=== PATIENT | male | born 1990 | race Caucasian/White ===

== ENCOUNTER 2021-03-03 09:53 | Outpatient (CLI) | payer OTHER, SELFPAY ==
[2021-03-03 10:10] LABS: Hematocrit 46.4 % (40.0-54.0); Hemoglobin 15.1 g/dL (14.0-18.0); Mean Corpuscular HGB Conc 32.5 g/dL (32.0-36.0); Mean Corpuscular Hemoglobin 29.5 pg (27.0-31.0); Mean Corpuscular Volume 90.6 fL (78.0-102.0); Mean Platelet Volume 11.2 fl (8.7-11.0); Platelet Count Result 152 K/mm3 (150-420); Red Blood Count 5.12 M/mm3 (4.70-6.10); White Blood Count 5.4 K/mm3 (4.8-10.8)
[2021-03-03 11:17] LABS: Alanine Aminotransferase 23 U/L (16-63); Albumin Level 4.1 g/dL (3.4-5.0); Alkaline Phosphatase 73 U/L (46-116); Anion Gap 7 mmol/L (8-16); Aspartate Amino Transferase 13 U/L (15-37); Bilirubin,Total 0.4 mg/dL (0.00-1.00); Blood Urea Nitrogen 13 mg/dL (7-18); Calcium 9.4 mg/dL (8.5-10.1); Carbon Dioxide 31 mmol/L (21-32); Chloride 103 mmol/L (98-108); Estimated Glomerular Filt Rate > 60; Glucose 93 mg/dL (70-99); Osmolality Calculated 292 mOsm/kg (285-295); Potassium 4.6 mmol/L (3.5-5.1); Sodium 141 mmol/L (136-145); Total Protein 7.5 g/dL (6.4-8.2)
[2021-03-03 11:19] LABS: CRP < 0.2 mg/dL (0.0-0.9)
[2021-03-03 11:20] LABS: Thyroid Stimulating Hormone Reflex 1.22 u/IU/mL (0.36-3.74)
[2021-03-08 13:25] LABS: Gliadin AB, IgG 4 Units (<20); Reticulin IgA Negative (Negative); TTG IGA AB 1 U/mL (<4)
== END 2021-03-03 09:54 | disposition home or self-care (01) ==
LOC: CHSLAB 09:54
PROVIDERS: PCP Family Medicine; Visit Provider Family Medicine
DX: K52.9 Noninfective gastroenteritis and colitis, unspecified (principal); E11.9 Type 2 diabetes mellitus without complications
CPT/HCPCS: 36415; 80053; 83516; 84443; 85027; 86140; 86255

== ENCOUNTER 2021-03-04 14:56 | Outpatient (CLI) | payer OTHER, SELFPAY ==
[2021-03-04 15:14] LABS: Occult Blood Negative (Negative)
== END 2021-03-04 14:57 | disposition home or self-care (01) ==
LOC: CHSLAB 14:58
PROVIDERS: PCP Family Medicine; Visit Provider Family Medicine
DX: K52.9 Noninfective gastroenteritis and colitis, unspecified (principal)
CPT/HCPCS: 83630; 83993; 87045; 87177; 87209; 87324; 87427

== ENCOUNTER 2021-03-18 16:15 | Outpatient (CLI) | payer OTHER, SELFPAY ==
--- NOTE | ~2021-03-18 | XR_ITS ---
XR lumbar spine 2-3V DATE: 03/18/2021 16:35 INDICATION: Back pain TECHNIQUE: AP, lateral, coned lateral lumbosacral views COMPARISON: None FINDINGS: There is slight levoscoliosis No fracture or dislocation or bone destruction. The lumbar pe dicles are intact. Lumbar and lumbosacral interspaces are well preserved. The sacral iliac joints are normal. IMPRESSION: Slight levoscoliosis Reviewed, dictated and finalized at location A. IMPRESSION: Slight levoscoliosis
== END 2021-03-18 16:16 | disposition home or self-care (01) ==
LOC: CHSIMG 16:17
PROVIDERS: PCP Family Medicine; Visit Provider Family Medicine
DX: M54.9 Dorsalgia, unspecified (principal); G89.29 Other chronic pain
CPT/HCPCS: 72100

== ENCOUNTER 2021-04-01 17:06 | Outpatient (RCR) | payer OTHER, SELFPAY ==
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
--- NOTE | 2021-05-26 13:07 | PCPTNOTE ---
05/26/21 - patient has not been to skilled PT in nearly a month. as of this date, he will be dc'd from skilled PT services and all progress towards goals will be taken from his most recent evaluation/note. IN[employer]
== END 2021-04-29 13:39 | disposition home or self-care (01) ==
LOC: CHSPT 17:06
PROVIDERS: PCP Family Medicine; Visit Provider Family Medicine
DX: M54.9 Dorsalgia, unspecified (principal); G89.29 Other chronic pain
CPT/HCPCS: 97014; 97110; 97161; G0283

== ENCOUNTER 2021-04-14 02:15 | Emergency (ER) | payer OTHER, SELFPAY ==
[2021-04-14 02:25] VITALS: BP 148/99; PULSE 93; RESP 20; TEMP 35.8; O2SAT 96
--- NOTE | 2021-04-14 02:51 | ED.DENTAL ---
HPI - Dental/Oral General Chief complaint: Dental/Oral Stated complaint: Tooth ache Time Seen by Provider: 04/14/21 02:17 Source: patient and RN notes reviewed Mode of arrival: ambulatory Limitations: no limitations History of Present Illness Complaint: tooth pain Location: Tooth # (16) Onset (ago): hour(s) (2) Duration: constant Severity: moderate Severity scale (1-10): 8 Relieving factors: nothing Exacerbating factors: chewing Context: history of dental caries and poor dental care Related Data Home Medications Medication Instructions Recorded Confirmed multivitamin 1 tablet PO DAILY 03/03/21 04/14/21 Allergies Allergy/AdvReac Type Severity Reaction Status Date / Time methylphenidate Allergy Unknown Unknown Verified 03/18/21 07:54 [From Ritalin] Review of Systems Review of Systems: All systems reviewed & are unremarkable except as noted in HPI and below PMFSH Past Medical History Medical History JUAN DIEGO (generalized anxiety disorder) Surgical History Surgical History No history of previous surgery Social History Social History Smoking status: Current every day smoker Tobacco type: e-cigarettes/vaping Additional living arrangements comments: . 1 daughter. Another daughter on the way. Additional occupation/education comments: [employer] in [place] and [employer] in [place]. Exam Const: General: no acute distress and alert Nutritional Appearance: well nourished Orientation/consciousness: patient oriented x3 Limitations: no limitations HENMT: Head: normal to inspection Ears: external ears normal and TM's normal bilaterally General nose exam: Normal external nose present and Normal nares present Mouth: Yes lip normal and Yes moist mucous membranes Teeth and gingiva: dentition normal Eyes: Conjunctivae: conjunctivae normal Pupils: Equal, round and reactive pupils present EOM: EOMs intact bilaterally Neck: Neck: normal visual inspection and no lymphadenopathy Chest: Chest palpation & inspection: normal inspection of the chest Resp: Effort & Inspection: normal respiratory effort Auscultation: clear to auscultation bilaterally Cardio: Rate: regular rate Rhythm: regular rhythm GI: Auscultation: normal bowel sounds : General: Yes bladder normal to palpation and Yes no CVA tenderness Testes: Testes normal Back/Spine/Pelvis: Back: no CVA tenderness Skin: General skin exam: normal color Rashes: no rashes Neuro: General: patient oriented x3, moves all extremities, no meningeal signs, no focal motor deficits and CN's II-XI intact bilaterally Extrem: General: normal to inspection and no pedal edema Psych: Appearance: well kempt Mental Status: mental status grossly normal Affect: normal affect Thought content: Yes Normal thought content present Course Course Emergency Course: pt had less pain in the ED. Reevaluation(s) Reevaluation #1: Pt was stable in the ED. Date: 04/14/21 Time: 02:48 Vital Signs Vital signs: Vital Signs Temperature 35.8 C L 04/14/21 02:25 Pulse Rate 93 04/14/21 02:25 Respiratory Rate 20 04/14/21 02:25 Blood Pressure 148/99 H 04/14/21 02:25 Pulse Oximetry 96 04/14/21 02:25 Temperature 35.8 C L 04/14/21 02:25 Pulse Rate 93 04/14/21 02:25 Respiratory Rate 20 04/14/21 02:25 Blood Pressure 148/99 H 04/14/21 02:25 Pulse Oximetry 96 04/14/21 02:25 MDM - Dental/Oral Differential Diagnosis Differential diagnosis: Likely dental caries and toothache Medical Records Attestation: I reviewed the patient's medical records. Critical Care Time Critical Care Time Critical Care Time: No Total Critical Care Time: 0 Discharge Plan Discharge Clinical Impression: Toothache, Dental caries Patient Disposition: Home, Self-Care Con
[2021-04-14] MEDS: KETOROLAC (*BKC) 60 MG/2 ML VIAL IM (02:53)
[2021-04-14 03:04] VITALS: BP 128/99; PULSE 74; RESP 20; O2SAT 97
== END 2021-04-14 03:07 | disposition home or self-care (01) ==
PROVIDERS: Emergency Provider Emergency Medicine; PCP Family Medicine
DX: K08.89 Other specified disorders of teeth and supporting structures (principal); K02.9 Dental caries, unspecified
CPT/HCPCS: 96372; 99283; J1885

== ENCOUNTER 2021-04-30 09:42 | Outpatient (CLI) | payer OTHER, SELFPAY ==
--- NOTE | ~2021-04-30 | XR_ITS ---
EXAMINATION: XR knee LT min 4V DATE: 04/30/2021 10:17 INDICATION: Left knee injury and pain. TECHNIQUE: 4 views of left knee including weight-bearing views were obtained. COMPARISON: None. FINDINGS: Bone alignment is normal. No fracture. Joint spaces are well maintained. There is no knee j oint effusion. IMPRESSION: 1. Normal left knee. Reviewed, dictated and finalized at location A. IMPRESSION: 1. Normal left knee.
== END 2021-04-30 09:43 | disposition home or self-care (01) ==
LOC: CHSIMG 09:46
PROVIDERS: PCP Family Medicine; Visit Provider Family Medicine
DX: S86.912A Strain of unspecified muscle(s) and tendon(s) at lower leg level, left leg, initial encounter (principal)
CPT/HCPCS: 73564

== ENCOUNTER 2022-06-22 10:32 | Outpatient (CLI) | payer OTHER, SELFPAY ==
--- NOTE | ~2022-06-22 | XR_ITS ---
EXAMINATION: XR ribs RT 2V w CXR 2V DATE: 06/22/2022 10:59 INDICATION: Right rib pain. Pleurodynia. Cough. TECHNIQUE: Frontal and lateral views of the chest and 2 views on 3 radiographs of the right ribs were obtained. COMPARISON: Chest radiographs 03/28/2010 FINDINGS: CHEST TWO VIEWS: There is no pneumonia, pleural effusion, or pneumothorax. The heart size is normal. RIGHT RIBS: There is no rib fracture. IMPRESSION: 1. No rib fracture. Reviewed, dictated and finalized at location A. [employer] IMPRESSION: 1. No rib fracture.
[2022-06-22 10:46] LABS: Hematocrit 45.7 % (40.0-54.0); Mean Corpuscular HGB Conc 32.8 g/dL (32.0-36.0); Mean Corpuscular Hemoglobin 29.1 pg (27.0-31.0); Mean Corpuscular Volume 88.6 fL (78.0-102.0); Mean Platelet Volume 10.7 fl (8.7-11.0); Platelet Count Result 164 K/mm3 (150-420); Red Blood Count 5.16 M/mm3 (4.70-6.10); Red Cell Distribution Width 12.3 % (11.6-14.4); White Blood Count 6.9 K/mm3 (4.8-10.8)
[2022-06-22 11:00] LABS: Prothrombin Time 10.7 Seconds (9.50-12.10)
[2022-06-22 11:31] LABS: Alanine Aminotransferase 22 U/L (16-63); Albumin Level 4.2 g/dL (3.4-5.0); Alkaline Phosphatase 93 U/L (46-116); Anion Gap 8 mmol/L (8-16); Aspartate Amino Transferase 16 U/L (15-37); Bilirubin,Total 0.3 mg/dL (0.00-1.00); Blood Urea Nitrogen 14 mg/dL (7-18); Calcium 9.1 mg/dL (8.5-10.1); Carbon Dioxide 30 mmol/L (21-32); Chloride 101 mmol/L (98-108); Estimated Glomerular Filt Rate > 60; Glucose 96 mg/dL (70-99); Lipase 40 U/L (16-77); Osmolality Calculated 288 mOsm/kg (285-295); Potassium 4.2 mmol/L (3.5-5.1); Sodium 139 mmol/L (136-145)
== END 2022-06-22 10:33 | disposition home or self-care (01) ==
LOC: CHSLAB 10:34
PROVIDERS: PCP Family Medicine; Visit Provider Family Medicine
DX: R10.9 Unspecified abdominal pain (principal); R07.81 Pleurodynia
CPT/HCPCS: 36415; 71046; 71100; 80053; 83690; 85027; 85610; 86140

== ENCOUNTER 2022-06-30 09:55 | Outpatient (CLI) | payer OTHER, SELFPAY ==
--- NOTE | ~2022-06-30 | US_ITS ---
Abdominal Sonogram: Real-time sonographic imaging of the abdomen was performed. Clinical History: Abdominal pain Findings: The liver appears normal with no evidence of mass lesion or bile duct dilatation. Main por rhianna vein demonstrates normal direction of flow. The spleen is normal in size without evidence of foca l lesion. The gallbladder is well distended, and appears normal with no evidence of gallstone or wal l thickening. The common bile duct measures 3 mm. The visualized pancreas, aorta, and IVC are unrema rkable. The right kidney measures 11.5 cm in length and the left kidney measures 11.3 cm. There is no hydronephrosis or renal calculus. Impression: Unremarkable abdominal ultrasound. Reviewed, dictated and finalized at location . [employer] Impression: Unremarkable abdominal ultrasound.
== END 2022-06-30 09:56 | disposition home or self-care (01) ==
LOC: CHSIMG 09:57
PROVIDERS: PCP Family Medicine; Visit Provider Family Medicine
DX: R10.9 Unspecified abdominal pain (principal)
CPT/HCPCS: 76700

== ENCOUNTER 2023-08-25 01:04 | Day surgery (SDC) | payer OTHER, SELFPAY ==
[2023-08-08 14:22] VITALS: BMI 29.2
--- NOTE | 2023-08-23 09:07 | SUR.PREOP ---
Patient called regarding upcoming procedure. Reviewed preop instructions, appointment times, and procedure prep.
[2023-08-25 06:51] VITALS: BP 116/88; PULSE 76; TEMP 36.3; O2SAT 99
[2023-08-25] MEDS: LACTATED RINGERS 1,000 ML 150 ML IV CONT (07:01)
--- NOTE | 2023-08-25 07:31 | WPDANESEPPF ---
Anes - Initial Pre Proc Eval Procedure: Operation Date: 08/25/23 08:00 Proposed Procedures p Esophagogastroduodenoscopy - Stephan Iraheta DO Date/Time: 08/25/23 07:31 Surgeon: Stephan Iraheta DO Pre Op Diagnosis: Unspecified abdominal pain Patient Data Age: 32 Gender: M Height: 1.93 m Weight: 116 kg Last Vital Signs Temp 97.3 F L 08/25/23 06:51 Pulse 76 08/25/23 06:51 BP 116/88 08/25/23 06:51 Pulse Ox 99 08/25/23 06:51 O2 Del Method Room Air 08/25/23 06:51 Allergies Allergy/AdvReac Type Severity Reaction Status Date / Time methylphenidate Allergy Unknown Unknown Verified 08/25/23 06:49 [From Ritalin] Home Medications Medication Instructions Recorded Confirmed Type cyclobenzaprine 10 mg tablet 10 mg PO TID PRN muscle spasm #30 07/15/23 08/17/23 Rx tabs multivitamin 1 tablet PO DAILY #30 tabs 07/22/23 08/17/23 Rx pantoprazole 40 mg tablet,delayed See Rx Instructions .Route 07/22/23 08/17/23 Rx release .COMPLEX #42 tabs aripiprazole 20 mg tablet (Abilify) 20 mg PO QHS #90 tabs 08/17/23 08/17/23 Rx dicyclomine 20 mg tablet 20 mg PO TID PRN diarrhea or 08/17/23 08/17/23 Rx abdominal cramping #90 tabs escitalopram oxalate 20 mg tablet See Rx Instructions .Route 08/17/23 08/17/23 Rx .COMPLEX #90 tabs ondansetron 4 mg disintegrating 4 mg PO Q8H #30 tabs 08/17/23 08/17/23 Rx tablet sucralfate 1 gram tablet 1 g PO TID #90 tabs 08/17/23 08/17/23 Rx Patient hx anesthesia problems: none Family hx anesthesia problems: none Results Review: All pre-operative results and documents have been reviewed as part of the pre-operative evaluation. [facility] Past Medical History Medical History JUAN DIEGO (generalized anxiety disorder) Strain of left knee Surgical History Surgical History No history of previous surgery Social History Social History (Updated 06/22/22 @ 10:05 by Josie Horne) Smoking status: Current every day smoker Tobacco type: cigarettes and e-cigarettes/vaping Alcohol intake: current Alcohol use details: twice a month Substance use: current Substance use type: marijuana Other substance usage details: vaping Lack of Transportation: No Lack of Food: Sometimes True Current Housing: I Have Housing Concerned About Future Housing: No Difficulty Paying Gas/Electric Bills: YES Difficulty Paying for Meds: No Currently Unemployed: YES Education: High School Diploma/GED Difficulty w/ Childcare or Family Care: No Living arrangements: alone Additional living arrangements comments: . 1 daughter. Another daughter on the way. Occupation/Education: occupation Additional occupation/education comments: [employer] in [place] and [employer] in [place]. Spiritual care concerns: No Anes - Eval Final PreProcedure Day of Procedure 08/25/23 07:31 Patient weight: normal Heart: regular rate and rhythm Lungs: clear to auscultation Airway: Mallampati scale class II Neurological: alert and oriented Last oral intake: >/= 8 hours ASA classification: II Emergent: no Anesthetic plan: proceed Anesthesia type and monitoring: general GIVS and standard monitoring Results Review: All pre-operative results and documents have been reviewed as part of the pre-operative evaluation. Informed Consent: The patient's anesthetic plan and its attendant risks and benefits were discussed with the patient/family/POA. Questions were solicited and answers provided to the satisfaction of the patient/family/POA.
--- NOTE | 2023-08-25 07:59 | PM.IMHP ---
H&P: HPI History of Present Illness Date/Time: 08/25/23 07:59 Chief Complaint: Epigastric pain, N/V Narrative: 32 yo man presents with frequent epigastric pain, nausea, and vomiting. He has not identified any foods causing this. He does have frequent heartburn. He denies hx of ulcers. He has vomited blood in the past but denies anything recently. Denies hx of liver problems. Review of Systems Review of Systems: All systems reviewed & are unremarkable except as noted in HPI and below Constitutional: Constitutional: Denies chills, Denies fever(s), Denies headache(s) and Denies weight loss Eyes: Eyes: Denies change in vision ENT: Denies dizziness, Denies headache(s), Denies neck mass and Denies throat swelling Cardiovascular: Cardiovascular: Denies chest pain, Denies lightheadedness and Denies dyspnea Respiratory: Respiratory: Denies cough, Denies dyspnea and Denies wheezing Gastrointestinal: Gastrointestinal: Denies abdominal pain, Denies change in bowel habits, Denies nausea and Denies vomiting Genitourinary: Genitourinary: Denies hematuria and Denies dysuria Musculoskeletal: Musculoskeletal: Reports as per HPI Integumentary/Breasts: Skin/Breast: Reports as per HPI Neurologic: Denies dizziness and Denies headache(s) Allergic/Immunologic: Allergic/Immunologic: Denies throat swelling and Denies wheezing PMFSH Past Medical History Medical History JUAN DIEGO (generalized anxiety disorder) Strain of left knee Surgical History Surgical History No history of previous surgery Social History Social History (Updated 06/22/22 @ 10:05 by Josie Horne) Smoking status: Current every day smoker Tobacco type: cigarettes and e-cigarettes/vaping Alcohol intake: current Alcohol use details: twice a month Substance use: current Substance use type: marijuana Other substance usage details: vaping Lack of Transportation: No Lack of Food: Sometimes True Current Housing: I Have Housing Concerned About Future Housing: No Difficulty Paying Gas/Electric Bills: YES Difficulty Paying for Meds: No Currently Unemployed: YES Education: High School Diploma/GED Difficulty w/ Childcare or Family Care: No Living arrangements: alone Additional living arrangements comments: . 1 daughter. Another daughter on the way. Occupation/Education: occupation Additional occupation/education comments: [employer] in [place] and [employer] in [place]. Spiritual care concerns: No Meds Home Medications and Allergies Home Medications Medication Instructions Recorded Confirmed Type cyclobenzaprine 10 mg tablet 10 mg PO TID PRN muscle spasm #30 07/15/23 08/17/23 Rx tabs multivitamin 1 tablet PO DAILY #30 tabs 07/22/23 08/17/23 Rx pantoprazole 40 mg tablet,delayed See Rx Instructions .Route 07/22/23 08/17/23 Rx release .COMPLEX #42 tabs aripiprazole 20 mg tablet (Abilify) 20 mg PO QHS #90 tabs 08/17/23 08/17/23 Rx dicyclomine 20 mg tablet 20 mg PO TID PRN diarrhea or 08/17/23 08/17/23 Rx abdominal cramping #90 tabs escitalopram oxalate 20 mg tablet See Rx Instructions .Route 08/17/23 08/17/23 Rx .COMPLEX #90 tabs ondansetron 4 mg disintegrating 4 mg PO Q8H #30 tabs 08/17/23 08/17/23 Rx tablet sucralfate 1 gram tablet 1 g PO TID #90 tabs 08/17/23 08/17/23 Rx Allergies Allergy/AdvReac Type Severity Reaction Status Date / Time methylphenidate Allergy Unknown Unknown Verified 08/25/23 06:49 [From Ritalin] Vital Signs Vital Signs - 24 hr 08/25/23 06:51 Temperature 36.3 C L Pulse Rate 76 Blood Pressure 116/88 Pulse Oximetry 99 Oxygen Delivery Room Air Exam Const: General: no acute distress and alert Orientation/consciousness: patient oriented x3 HENMT: Head: normocephalic and atraumatic Ears: hearing grossly normal bilaterally Face/Nose/
[2023-08-25 08:16] VITALS: BP 109/73; PULSE 60; RESP 19; O2SAT 96
[2023-08-25 08:26] VITALS: BP 109/68; PULSE 54; RESP 13; O2SAT 94
[2023-08-25 08:36] VITALS: BP 107/77; PULSE 65; RESP 20; O2SAT 97
== END 2023-08-25 08:55 | disposition home or self-care (01) ==
PROVIDERS: PCP Family Medicine; Visit Provider Surgery
PROC: 0DJ08ZZ Inspection of Upper Intestinal Tract, Via Natural or Artificial Opening Endoscopic (ICD-10-PCS; CPT 43235; principal; 2023-08-25 08:00)
DX: K21.00 Gastro-esophageal reflux disease with esophagitis, without bleeding (principal); F41.9 Anxiety disorder, unspecified; F17.210 Nicotine dependence, cigarettes, uncomplicated; F12.90 Cannabis use, unspecified, uncomplicated
CPT/HCPCS: 43239; 87081; 88305; J2704; J7120

== ENCOUNTER 2024-03-27 10:55 | Outpatient (CLI) | payer OTHER, SELFPAY ==
[2024-03-27 11:13] LABS: Basophils Absolute Auto 0.06 K/mm3 (0.00-0.10); Eosinophils Absolute Auto 0.22 K/mm3 (0.02-0.50); Eosinophils Percent Auto 3.8 % (1.0-6.0); Hematocrit 47.6 % (40.0-54.0); Hemoglobin 15.8 g/dL (14.0-18.0); Immature Granulocyte Absolute 0.01 K/mm3 (0.00-0.00); Immature Granulocyte Percent A 0.2 % (0.0-0.0); Lymphocytes Absolute Auto 1.92 K/mm3 (1.10-4.50); Lymphocytes Percent Auto 33.4 % (18.0-42.0); Mean Corpuscular HGB Conc 33.2 g/dL (32-36); Mean Corpuscular Hemoglobin 28.8 pg (27.0-31.0); Mean Corpuscular Volume 86.9 fL (78.0-102.0); Monocytes Absolute Auto 0.31 K/mm3 (0.10-0.90); Monocytes Percent Auto 5.4 % (2.0-11.0); Neutrophils Absolute Auto 3.22 K/mm3 (1.70-7.20); Neutrophils Percent Auto 56.2 % (50.0-70.0); Platelet Count Result 187 K/mm3 (150-420); Red Blood Count 5.48 M/mm3 (4.70-6.10); Red Cell Distribution Width 12.5 % (11.6-14.4); White Blood Count 5.7 K/mm3 (4.8-10.8)
[2024-03-27 11:34] LABS: INR 0.9; Prothrombin Time 9.9 Seconds (9.50-12.1)
[2024-03-27 12:44] LABS: Alanine Aminotransferase 21 U/L (16-63); Albumin Level 3.9 g/dL (3.4-5.0); Alkaline Phosphatase 107 U/L (46-116); Anion Gap 7 mmol/L (4-12); Aspartate Amino Transferase 12 U/L (15-37); Bilirubin,Total 0.2 mg/dL (0.00-1.00); Blood Urea Nitrogen 11 mg/dL (7-18); CRP 0.5 mg/dL (0.0-0.9); Calcium 9.2 mg/dL (8.5-10.1); Carbon Dioxide 28 mmol/L (21-32); Chloride 104 mmol/L (98-108); Estimated Glomerular Filt Rate > 60; Glucose 98 mg/dL (70-99); Lipase 141 U/L (16-77); Osmolality Calculated 287 mOsm/kg (285-295); Potassium 4.6 mmol/L (3.5-5.1); Sodium 139 mmol/L (136-145); Total Protein 7.6 g/dL (6.4-8.2)
== END 2024-03-27 10:56 | disposition home or self-care (01) ==
LOC: CHSLAB 10:57
PROVIDERS: PCP Family Medicine; Visit Provider Family Medicine
DX: R10.13 Epigastric pain (principal)
CPT/HCPCS: 36415; 80053; 83690; 85025; 85610; 86140